=== PATIENT | female | born 1995 | race Caucasian/White ===

== ENCOUNTER → 2024-06-04 13:42 | Outpatient (REF) | payer BC, SELFPAY | LOC: RAD 13:42 | PROVIDERS: ATTENDING PHYSICIAN Nurse Practitioner Family; FAMILY PHYSICIAN Family Medicine | DX: O26.851 Spotting complicating pregnancy, first trimester (principal) | CPT/HCPCS: 76801; 76817 ==

== ENCOUNTER 2025-01-05 06:09 | Inpatient (IN) | payer BC, SELFPAY ==
[2025-01-05 06:32] VITALS: BP 148/78; BMI 36.2
[2025-01-05] MEDS: LR 1000 IV ×2 (08:00→12:06)
[2025-01-05 08:53] LABS: Hematocrit 38.7 % (37.0-47.0); Hemoglobin 13.8 g/dL (12.0-16.0); Mean Corp Hgb Conc. 35.7 g/dL (33.0-37.0); Mean Corpuscular Hgb 30.8 pg (27.0-31.0); Mean Corpuscular Volume 86.4 fL (81.0-99.0); Mean Platelet Volume 11.9 fL (7.4-10.4); Platelet Count 239 10^3/uL (130-400); Red Blood Cell Count 4.48 10^6/uL (4.20-5.40); White Blood Cell Count 18.9 10^3/uL (4.8-10.8)
[2025-01-05 09:16] LABS: ALT (SGPT) 14 U/L (0-35); AST (SGOT) 24 U/L (14-36); Albumin 4.1 g/dl (3.5-5.0); Alkaline Phosphatase 194 U/L (38-126); Blood Urea Nitrogen 10 mg/dl (7-17); Calcium 9.5 mg/dl (8.4-10.2); Carbon Dioxide 20 mmol/L (22-30); Chloride 104 mmol/L (98-107); Estimated Creatinine Clearance > 125 ml/min; Glucose 106 mg/dl (70-99); Potassium 4.3 mmol/L (3.5-5.1); Sodium 138 mmol/L (135-145); Total Bilirubin 0.6 mg/dl (0.2-1.3); Total Protein 6.8 g/dl (6.3-8.2); eGFR > 60.00
[2025-01-05] MEDS: SUBLIMAZE 100 MCG EPIDURAL (10:10)
[2025-01-05] MEDS: FENTANYL/BUPIVACAINE 100 EPIDURAL ×2 (10:11→17:48)
[2025-01-05 11:02] LABS: % Basophils 0.3 % (0-2); % Eosinophils 0.2 % (0-6); % Immature Granulocytes 0.7 % (0-0.5); % Monocytes 2.3 % (1.7-9.3); % Neutrophils 92.5 % (42.2-75.2); Absolute Basophils 0.1 10^3/uL (0-0.2); Absolute Immature Granulocytes 0.1 10^3/uL (0-0.05); Absolute Lymphocytes 0.8 10^3/uL (1.2-3.4); Absolute Monocytes 0.4 10^3/uL (0.1-0.6); Absolute Neutrophils 17.5 10^3/uL (1.4-6.5); Nucleated Red Blood Cells % 0 %
[2025-01-05] MEDS: PITOCIN 30 UNITS/NSS 500 ML IV (15:24)
[2025-01-06 06:07] LABS: Hematocrit 31.9 % (37.0-47.0); Hemoglobin 10.7 g/dL (12.0-16.0)
[2025-01-06] MEDS: PRENATAL PLUS 1 TABLET PO (09:57)
[2025-01-06] MEDS: SENOKOT-S 1 TABLET PO (09:57)
[2025-01-07] MEDS: SENOKOT-S 1 TABLET PO (08:15)
[2025-01-07] MEDS: PRENATAL PLUS 1 TABLET PO (08:15)
[2025-01-07 13:12] LABS: Syphilis/T. pallidum Ab Reflex Negative (Negative)
== END 2025-01-07 13:11 | disposition home or self-care (01) | DRG 807 ==
LOC: LDRP 06:09
PROVIDERS: Obstetrics & Gynecology; ADMITTING PHYSICIAN Obstetrics & Gynecology
PROC: 10E0XZZ Delivery of Products of Conception, External Approach (ICD-10-PCS; 2025-01-05)
PROC: 0KQM0ZZ Repair Perineum Muscle, Open Approach (ICD-10-PCS; 2025-01-05)
DX: O98.32 Other infections with a predominantly sexual mode of transmission complicating childbirth (principal); Z37.0 Single live birth; Z3A.38 38 weeks gestation of pregnancy; K21.9 Gastro-esophageal reflux disease without esophagitis; O66.0 Obstructed labor due to shoulder dystocia; A63.0 Anogenital (venereal) warts; O69.81X0 Labor and delivery complicated by cord around neck, without compression, not applicable or unspecified; O76 Abnormality in fetal heart rate and rhythm complicating labor and delivery; O70.1 Second degree perineal laceration during delivery; Z88.2 Allergy status to sulfonamides; Z80.3 Family history of malignant neoplasm of breast; Z80.1 Family history of malignant neoplasm of trachea, bronchus and lung; Z82.49 Family history of ischemic heart disease and other diseases of the circulatory system
CPT/HCPCS: 36415; 80053; 85014; 85018; 85025; 86780; 86850; 86900; 86901